=== PATIENT | male | born 1935 | race Two or more races ===

== ENCOUNTER → 2017-04-17 | Outpatient (CLI) | payer MEDICARE ==
--- NOTE | 2017-04-17 09:37 | RAD ---
Exam performed: Renal sonogram. Indication: Renal cyst follow-up Date of Service: 04/17/17 . Comparison: Report from a previous renal ultrasound from 11/30/11 performed at appropriate imaging Technique: Real-time grayscale imaging of the kidneys is performed and images are obtained. Findings: Both kidneys are normal in size and echogenicity. The right kidney measures 11.7 x 5.6 x 5.4 cm whereas the left kidney measures 10.4 x 5.8 x 5.5 cm. There is a 3.6 x 3.7 x 2.8 cm cyst in the right kidney. There is no hydronephrosis or perinephric fluid collection. The urinary bladder is decompressed. Impression: 1. Simple right renal cyst, otherwise unremarkable exam.
== END | disposition home or self-care (01) ==
LOC: US 08:45
PROVIDERS: ATTEND Internal Medicine Nephrology
DX: N28.1 Cyst of kidney, acquired (principal); I12.9 Hypertensive chronic kidney disease with stage 1 through stage 4 chronic kidney disease, or unspecified chronic kidney disease; N18.3 Chronic kidney disease, stage 3 (moderate)
CPT/HCPCS: 76770

== ENCOUNTER → 2018-05-16 | Outpatient (CLI) | payer MEDICARE | END | disposition home or self-care (01) | LOC: LAB 11:17 | PROVIDERS: ATTEND Urology | DX: C61 Malignant neoplasm of prostate (principal) | CPT/HCPCS: 84153; G0103 ==

== ENCOUNTER → 2018-05-16 | Outpatient (CLI) | payer MEDICARE ==
[2018-05-16 12:39] LABS: ALBUMIN 3.7 g/dL (3.4-5.0); CALCIUM 9.2 mg/dL (8.5-10.1); CREATININE 2.1 mg/dL (0.7-1.3); GFR 30.5; MAGNESIUM 1.9 mg/dL (1.8-2.4); PHOSPHORUS 2.7 mg/dL (2.6-4.7); POTASSIUM 4.1 mmol/L (3.5-5.1)
[2018-05-16 15:29] LABS: HEMATOCRIT 35.9 % (39.0-53.0)
[2018-05-17 02:08] LABS: CALCIUM PTH 9.7 mg/dL (8.6-10.2); CREATININE PTH 1.98 mg/dL (0.76-1.27); MICRO CREAT RATIO 13.5 mg/g creat (0.0-30.0); MICROALB RD UR 14.5 ug/mL (Not Estab.); PTH INTACT 47 pg/mL (15-65)
== END | disposition home or self-care (01) ==
LOC: LAB 11:24
PROVIDERS: ATTEND Internal Medicine Nephrology
DX: I12.9 Hypertensive chronic kidney disease with stage 1 through stage 4 chronic kidney disease, or unspecified chronic kidney disease (principal); N18.3 Chronic kidney disease, stage 3 (moderate); E55.9 Vitamin D deficiency, unspecified; I70.1 Atherosclerosis of renal artery; D50.9 Iron deficiency anemia, unspecified; Z68.31 Body mass index [BMI] 31.0-31.9, adult
CPT/HCPCS: 36415; 80069; 82043; 82306; 82570; 82607; 82728; 83540; 83550; 83735; 83970; 84156; 85014; 85018

== ENCOUNTER → 2021-12-06 | Outpatient (CLI) | payer MEDICARE ==
--- NOTE | 2021-12-06 16:37 | RAD ---
Exam: XR KNEE 3 VIEWS_RT History: Acute right knee pain Comparison: None. Findings: Osseous mineralization is normal. No acute fracture or dislocation. Moderate medial tibiofemoral comp artment narrowing. Small medial and patellofemoral compartment osteophytes. No effusion. No focal sof t tissue swelling. Impression: 1. 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 Electronically signed by: Axel Mckeon MD (12/06/2021 4:35 PM) [id number]
== END ==
LOC: RAD 12:05
PROVIDERS: ATTEND Family Medicine
DX: M17.11 Unilateral primary osteoarthritis, right knee (principal); M25.761 Osteophyte, right knee
CPT/HCPCS: 73562